=== PATIENT | female | born 1955 | race Caucasian/White ===

== ENCOUNTER → 2017-08-14 | Outpatient (CLI) | payer BC ==
[~2017-08-14] MED LIST: ALEVE220 MG PO; BENTYL20 MG PO; CIPRO 500MG TA500 MG PO; FLAGYL 500MG.500 MG PO; HYDROCHLOROTH12.5 M1 PO; LISINOPRIL20 MG PO
--- NOTE | 2017-08-14 17:40 | RADIOLOGY REPORT PS360 ---
KNEE-3 VIEWS-RT HISTORY: PAIN IN RIGHT KNEE ORDERING PHYSICIAN: Kerri Suggs APRN PATIENT AGE: 62 years COMPARISON: None FINDINGS: No fracture or dislocation. No lytic or blastic change. Normal mineralization. There is slight decrease in the medial joint space and patellofemoral joint space with minimal osteophyte formation. IMPRESSION: Mild osteoarthritic changes of the medial compartment and patellofemoral joint
--- NOTE | 2017-08-14 17:41 | RADIOLOGY REPORT PS360 ---
KNEE-3 VIEWS-LT HISTORY: PAIN IN LEFT KNEE ORDERING PHYSICIAN: Kerri Suggs APRN PATIENT AGE: 62 years COMPARISON: None FINDINGS: No fracture or dislocation. No lytic or blastic change. Normal mineralization. Minimal osteoarthritic changes involving the medial compartment and patellofemoral joint. IMPRESSION: Minimal Osteoarthritis left knee
== END ==
LOC: RAD 16:09
DX: M25.561 Pain in right knee (principal); M25.562 Pain in left knee

== ENCOUNTER → 2017-10-29 | Outpatient (CLI) | payer BC | LOC: SL 11:05 | DX: R06.83 Snoring (principal); G47.00 Insomnia, unspecified | CPT/HCPCS: G0399-TC ==